=== PATIENT | female | born 1980 | race Caucasian/White ===

== ENCOUNTER 2017-01-07 14:41 | Inpatient (IN) | payer MEDICAID ==
[~2017-01-07] VITALS: Ht 177.8 cm; Wt 93.9 kg
[2017-01-07 18:25] LABS: BASOPHILS % (AUTO) 0.4 % (0.0-2.0); EOSINOPHILS % (AUTO) 2.1 % (1.0-6.0); HEMATOCRIT 41.3 % (36-46); HEMOGLOBIN 13.8 g/dL (12.0-16.0); LYMPHOCYTES # (AUTO) 3.3 K/uL (1.0-4.8); LYMPHOCYTES % (AUTO) 27.4 % (22.0-44.0); MEAN CORPUSCULAR HEMOGLOBIN 29.2 pg (26.0-34.0); MEAN CORPUSCULAR HGB CONC 33.4 G/dL (31.0-37.0); MEAN CORPUSCULAR VOLUME 87 fL (80-100); MONOCYTES # (AUTO) 0.8 K/uL (0.1-1.0); MONOCYTES % (AUTO) 6.6 % (2.0-9.0); NEUTROPHILS # (AUTO) 7.5 K/uL (1.8-7.7); NEUTROPHILS % (AUTO) 63.5 % (40.0-70.0); PLATELET COUNT (AUTO) 300 K/uL (150-450); RED BLOOD CELL COUNT(AUTO) 4.72 MIL/uL (4.00-5.20); RED CELL DISTRIBUTION WIDTH 13.2 % (11.5-14.5); WHITE BLOOD COUNT (AUTO) 11.9 K/uL (4.5-11.0)
[2017-01-07 18:38] LABS: ANION GAP 11 mmol/L (8-16); CALCIUM, TOTAL 9.1 mg/dL (8.8-10.5); CARBON DIOXIDE 28 mmol/L (22-29); CHLORIDE 100 mmol/L (98-107); GLOMERULAR FILTR. RATE CALC > 60 mL/min (>60); SODIUM SERUM 139 mmol/L (136-145); UREA NITROGEN, BLOOD 16 mg/dL (7-18)
[2017-01-07 18:44] LABS: ALANINE AMINOTRANSFERASE 24 U/L (12-78); ALBUMIN 3.8 g/dL (3.4-5.0); ASPARTATE AMINOTRANSFERASE 16 U/L (15-37); BILIRUBIN,TOTAL 0.4 mg/dL (0.1-1.0); TOTAL PROTEIN, SERUM 7.8 g/dL (6.4-8.2)
[2017-01-07] MEDS ORDERED: HALOPERIDOL 5 MG TABLET PO ONE (21:00)
[2017-01-07] MEDS ORDERED: LORazepam 2 MG TABLET PO ONE (21:00)
[2017-01-07] MEDS ORDERED: DiphenhydrAMINE HCL 25 MG CAPSULE PO ONE (21:00)
[2017-01-07] MEDS ORDERED: ZOLPIDEM TARTRATE 10 MG TABLET PO PRN (22:00)
[2017-01-07 22:04] VITALS: BP 122/66
[2017-01-07 23:51] VITALS: BP 117/69
[2017-01-08] MEDS ORDERED: INFLUENZA VIRUS VACCINE QVS 2016-17 (3YR+)/PF 60 MCG/0.5 ML SYRINGE IM ONE (00:30)
[2017-01-08 08:14] VITALS: BP 106/62
[2017-01-08] MEDS: NICOTINE 7 MG/24 HOUR PATCH TD SCH ×2 (08:34→09:00)
[2017-01-08] MEDS ORDERED: ACETAMINOPHEN 325 MG TABLET PO PRN (10:30)
[2017-01-08] MEDS ORDERED: IBUPROFEN 400 MG TABLET PO PRN (10:30)
[2017-01-08] MEDS: HALOPERIDOL 5 MG TABLET PO PRN (14:27)
[2017-01-08] MEDS: LORazepam 2 MG TABLET PO PRN (14:27)
[2017-01-08 16:05] VITALS: BP 112/72
[2017-01-09] MEDS: HALOPERIDOL 5 MG TABLET PO PRN (06:30)
[2017-01-09] MEDS: LORazepam 2 MG TABLET PO PRN (06:30)
[2017-01-09 08:52] LABS: HEMOGLOBIN A1C 5.8 % (4.5-6.2)
[2017-01-09 08:58] VITALS: BP 118/77
[2017-01-09] MEDS ORDERED: DiphenhydrAMINE HCL 50 MG/ML VIAL IM ONE (09:00)
[2017-01-09] MEDS ORDERED: LORazepam 2 MG/ML VIAL IM ONE (09:00)
[2017-01-09] MEDS ORDERED: HALOPERIDOL LACTATE 5 MG/ML VIAL IM ONE (09:00)
[2017-01-09] MEDS: CITALOPRAM HYDROBROMIDE 20 MG TABLET PO SCH (09:02)
[2017-01-09] MEDS: NICOTINE 7 MG/24 HOUR PATCH TD SCH (09:02)
[2017-01-09 09:35] LABS: CHOL/HDL RATIO 4.8 (3.9-5.7); THYROID STIMULATING HORMONE 2.22 uIU/mL (0.36-3.74)
[2017-01-10 05:08] VITALS: BP 106/64
[2017-01-10] MEDS: HALOPERIDOL 5 MG TABLET PO PRN ×3 (05:11→18:03)
[2017-01-10] MEDS: LORazepam 2 MG TABLET PO PRN ×3 (05:11→18:03)
[2017-01-10] MEDS: CITALOPRAM HYDROBROMIDE 20 MG TABLET PO SCH (09:33)
[2017-01-10] MEDS: NICOTINE 7 MG/24 HOUR PATCH TD SCH (09:33)
[2017-01-10 10:58] VITALS: BP 106/67
[2017-01-10 16:09] VITALS: BP 101/67
[2017-01-10] MEDS: SIMVASTATIN 5 MG TABLET PO SCH (20:38)
[2017-01-11 00:12] VITALS: BP 100/61
[2017-01-11 07:01] VITALS: BP 117/70
[2017-01-11 08:05] VITALS: BP 117/70
[2017-01-11] MEDS: NICOTINE 7 MG/24 HOUR PATCH TD SCH (08:42)
[2017-01-11] MEDS: CITALOPRAM HYDROBROMIDE 20 MG TABLET PO SCH (08:45)
[2017-01-11] MEDS: LORazepam 2 MG TABLET PO PRN ×2 (12:06→17:59)
[2017-01-11] MEDS: HALOPERIDOL 5 MG TABLET PO PRN ×2 (13:21→17:59)
[2017-01-11 16:15] VITALS: BP 108/72
[2017-01-11] MEDS: RisperiDONE 3 MG TABLET PO SCH (17:12)
[2017-01-11] MEDS: SIMVASTATIN 5 MG TABLET PO SCH (20:36)
[2017-01-12 00:37] VITALS: BP 110/76
[2017-01-12] MEDS: CITALOPRAM HYDROBROMIDE 20 MG TABLET PO SCH (08:19)
[2017-01-12] MEDS: LORazepam 2 MG TABLET PO PRN ×2 (08:20→16:00)
[2017-01-12] MEDS: RisperiDONE 3 MG TABLET PO SCH ×2 (08:20→16:02)
[2017-01-12 08:24] VITALS: BP 111/77
[2017-01-12] MEDS: HALOPERIDOL 5 MG TABLET PO PRN (08:45)
[2017-01-12] MEDS: NICOTINE 7 MG/24 HOUR PATCH TD SCH ×2 (09:00→12:50)
[2017-01-12 16:03] VITALS: BP 115/74
[2017-01-12] MEDS ORDERED: RISP3TAB44 PO (19:18)
[2017-01-12] MEDS ORDERED: CITA20TA17 PO (19:18)
[2017-01-12] MEDS ORDERED: SIMV5TAB2 PO (19:32)
== END 2017-01-12 21:09 | disposition home or self-care (01) | DRG 750 ==
LOC: EMS 14:42 → B2S 21:59
PROVIDERS: ADMIT Psychiatry & Neurology Psychiatry; ATTEND Psychiatry & Neurology Psychiatry
DX: F25.9 Schizoaffective disorder, unspecified (principal); Z59.0 Homelessness; F32.9 Major depressive disorder, single episode, unspecified; D72.829 Elevated white blood cell count, unspecified; F41.9 Anxiety disorder, unspecified; F17.210 Nicotine dependence, cigarettes, uncomplicated; Z91.018 Allergy to other foods; Z28.21 Immunization not carried out because of patient refusal
CPT/HCPCS: 83036; 84443; 87081; 99285; G0480; J1200; J1630; J2060

== ENCOUNTER 2017-01-20 19:50 | Inpatient (IN) | payer MEDICAID ==
[~2017-01-20] VITALS: Ht 160 cm; Wt 92.5 kg
[~2017-01-20 19:50] MED LIST: CITA20TA17 PO; RISP3TAB44 PO; SIMV5TAB2 PO
[2017-01-21 05:44] VITALS: BP 108/71
[2017-01-21] MEDS ORDERED: INFLUENZA VIRUS VACCINE QVS 2016-17 (3YR+)/PF 60 MCG/0.5 ML SYRINGE IM ONE (06:00)
[2017-01-21] MEDS ORDERED: RISPC25 IM (10:54)
[2017-01-21] MEDS ORDERED: DIVA500T35 PO (10:54)
[2017-01-21] MEDS ORDERED: VIST50 PO (10:54)
[2017-01-21] MEDS ORDERED: PRAZ1 PO (10:54)
[2017-01-21] MEDS: LORazepam 1 MG TABLET PO PRN (16:20)
[2017-01-21] MEDS: HALOPERIDOL 5 MG TABLET PO PRN (16:20)
[2017-01-21] MEDS ORDERED: DiphenhydrAMINE HCL 50 MG/ML VIAL ONE (16:35)
[2017-01-21] MEDS ORDERED: HALOPERIDOL LACTATE 5 MG/ML VIAL ONE (16:35)
[2017-01-21] MEDS ORDERED: LORazepam 2 MG/ML VIAL ONE (16:35)
[2017-01-21] MEDS ORDERED: LORazepam 2 MG/ML VIAL IM ONE (16:45)
[2017-01-21] MEDS ORDERED: HALOPERIDOL LACTATE 5 MG/ML VIAL IM ONE (16:45)
[2017-01-21] MEDS ORDERED: DiphenhydrAMINE HCL 50 MG/ML VIAL IM ONE (16:45)
[2017-01-21 17:30] VITALS: BP 136/80
[2017-01-21] MEDS: DIVALPROEX SODIUM 500 MG DR TABLET PO SCH (20:50)
[2017-01-21] MEDS: ZOLPIDEM TARTRATE 10 MG TABLET PO PRN (21:08)
[2017-01-22 07:03] VITALS: BP 132/78
[2017-01-22] MEDS: RisperiDONE 3 MG TABLET PO SCH ×2 (09:29→16:02)
[2017-01-22] MEDS: CITALOPRAM HYDROBROMIDE 20 MG TABLET PO SCH (09:29)
[2017-01-22] MEDS ORDERED: LORazepam 2 MG/ML VIAL ONE (11:22)
[2017-01-22] MEDS ORDERED: DiphenhydrAMINE HCL 50 MG/ML VIAL ONE (11:22)
[2017-01-22] MEDS ORDERED: HALOPERIDOL LACTATE 5 MG/ML VIAL ONE (11:23)
[2017-01-22] MEDS ORDERED: HALOPERIDOL LACTATE 5 MG/ML VIAL IM ONE (11:30)
[2017-01-22] MEDS ORDERED: LORazepam 2 MG/ML VIAL IM ONE (11:30)
[2017-01-22] MEDS ORDERED: DiphenhydrAMINE HCL 50 MG/ML VIAL IM ONE (11:30)
[2017-01-22] MEDS: HALOPERIDOL 5 MG TABLET PO PRN (16:02)
[2017-01-22] MEDS: LORazepam 1 MG TABLET PO PRN ×2 (16:02→20:33)
[2017-01-22] MEDS: DIVALPROEX SODIUM 500 MG DR TABLET PO SCH (20:33)
[2017-01-22] MEDS: ZOLPIDEM TARTRATE 10 MG TABLET PO PRN (21:08)
[2017-01-22] MEDS ORDERED: IBUPROFEN 400 MG TABLET PO PRN (23:30)
[2017-01-22] MEDS ORDERED: ACETAMINOPHEN 325 MG TABLET PO PRN (23:30)
[2017-01-23] MEDS: CITALOPRAM HYDROBROMIDE 20 MG TABLET PO SCH (08:52)
[2017-01-23] MEDS: RisperiDONE 3 MG TABLET PO SCH ×2 (08:52→16:50)
[2017-01-23] MEDS: LORazepam 1 MG TABLET PO PRN ×2 (12:34→21:18)
[2017-01-23] MEDS: HALOPERIDOL 5 MG TABLET PO PRN (12:34)
[2017-01-23] MEDS ORDERED: DiphenhydrAMINE HCL 50 MG/ML VIAL ONE (14:25)
[2017-01-23] MEDS ORDERED: DiphenhydrAMINE HCL 50 MG/ML VIAL IM ONE (14:30)
[2017-01-23] MEDS ORDERED: LORazepam 2 MG/ML VIAL IM ONE (14:30)
[2017-01-23] MEDS ORDERED: HALOPERIDOL LACTATE 5 MG/ML VIAL IM ONE (14:30)
[2017-01-23] MEDS: DIVALPROEX SODIUM 500 MG DR TABLET PO SCH (21:18)
[2017-01-23] MEDS: ZOLPIDEM TARTRATE 10 MG TABLET PO PRN (21:50)
[2017-01-24] MEDS: CITALOPRAM HYDROBROMIDE 20 MG TABLET PO SCH (08:11)
[2017-01-24] MEDS: RisperiDONE 3 MG TABLET PO SCH ×2 (08:11→16:07)
[2017-01-24] MEDS: LORazepam 1 MG TABLET PO PRN ×2 (12:51→17:02)
[2017-01-24] MEDS: HALOPERIDOL 5 MG TABLET PO PRN ×2 (12:51→17:02)
[2017-01-24] MEDS ORDERED: LORazepam 2 MG/ML VIAL ONE (14:28)
[2017-01-24] MEDS ORDERED: HALOPERIDOL LACTATE 5 MG/ML VIAL ONE (14:28)
[2017-01-24] MEDS ORDERED: DiphenhydrAMINE HCL 50 MG/ML VIAL ONE (14:29)
[2017-01-24] MEDS ORDERED: DiphenhydrAMINE HCL 50 MG/ML VIAL IM ONE (14:45)
[2017-01-24] MEDS ORDERED: HALOPERIDOL LACTATE 5 MG/ML VIAL IM ONE (14:45)
[2017-01-24] MEDS ORDERED: LORazepam 2 MG/ML VIAL IM ONE (14:45)
[2017-01-24 16:18] VITALS: BP 100/70
[2017-01-24] MEDS: DIVALPROEX SODIUM 500 MG DR TABLET PO SCH (20:26)
[2017-01-24] MEDS: ZOLPIDEM TARTRATE 10 MG TABLET PO PRN (20:26)
[2017-01-25 08:19] VITALS: BP 117/70
[2017-01-25] MEDS: CITALOPRAM HYDROBROMIDE 20 MG TABLET PO SCH (08:24)
[2017-01-25] MEDS: RisperiDONE 3 MG TABLET PO SCH ×2 (08:24→16:16)
[2017-01-25] MEDS: HALOPERIDOL 5 MG TABLET PO PRN ×2 (12:42→20:10)
[2017-01-25] MEDS: LORazepam 1 MG TABLET PO PRN ×2 (12:42→20:10)
[2017-01-25 17:57] VITALS: BP 125/74
[2017-01-25] MEDS: DIVALPROEX SODIUM 500 MG DR TABLET PO SCH (20:09)
[2017-01-25] MEDS: ZOLPIDEM TARTRATE 10 MG TABLET PO PRN (20:10)
[2017-01-26 06:44] VITALS: BP 124/71
[2017-01-26] MEDS: CITALOPRAM HYDROBROMIDE 20 MG TABLET PO SCH (08:08)
[2017-01-26] MEDS: RisperiDONE 3 MG TABLET PO SCH ×2 (08:08→16:47)
[2017-01-26] MEDS: LORazepam 1 MG TABLET PO PRN ×4 (08:39→21:50)
[2017-01-26] MEDS: HALOPERIDOL 5 MG TABLET PO PRN ×2 (13:44→17:48)
[2017-01-26 16:08] VITALS: BP 128/81
[2017-01-26] MEDS: DIVALPROEX SODIUM 500 MG DR TABLET PO SCH (20:23)
[2017-01-26] MEDS: ZOLPIDEM TARTRATE 10 MG TABLET PO PRN (21:04)
[2017-01-27 06:29] VITALS: BP 122/70
[2017-01-27] MEDS: RisperiDONE 3 MG TABLET PO SCH ×2 (08:20→16:27)
[2017-01-27] MEDS: CITALOPRAM HYDROBROMIDE 20 MG TABLET PO SCH (08:20)
[2017-01-27] MEDS: LORazepam 1 MG TABLET PO PRN (08:23)
[2017-01-27] MEDS: HALOPERIDOL 5 MG TABLET PO PRN (13:57)
[2017-01-27] MEDS: DIVALPROEX SODIUM 500 MG DR TABLET PO SCH (20:38)
[2017-01-28] MEDS: CITALOPRAM HYDROBROMIDE 20 MG TABLET PO SCH (08:03)
[2017-01-28] MEDS: RisperiDONE 3 MG TABLET PO SCH (08:03)
[2017-01-28 08:41] VITALS: BP 121/78
[2017-01-28] MEDS: HALOPERIDOL 5 MG TABLET PO PRN (09:06)
[2017-02-03] MEDS ORDERED: RisperiDONE MICROSPHERES 50 MG/2 ML SYRINGE IM SCH (09:00)
== END 2017-01-28 13:44 | disposition home or self-care (01) | DRG 750 ==
LOC: B3A 01-21 03:30
PROVIDERS: ADMIT Psychiatry & Neurology Psychiatry; ATTEND Psychiatry & Neurology Psychiatry
DX: F25.9 Schizoaffective disorder, unspecified (principal); R45.851 Suicidal ideations; F20.0 Paranoid schizophrenia; F32.9 Major depressive disorder, single episode, unspecified; F41.9 Anxiety disorder, unspecified; E78.5 Hyperlipidemia, unspecified; F17.200 Nicotine dependence, unspecified, uncomplicated; Z71.6 Tobacco abuse counseling; Z91.018 Allergy to other foods; Z28.21 Immunization not carried out because of patient refusal
CPT/HCPCS: J1200; J1630; J2060

== ENCOUNTER 2017-07-30 00:02 | Inpatient (IN) | payer MEDICAID ==
[~2017-07-30] VITALS: Ht 165.1 cm; Wt 94.5 kg
[~2017-07-30 00:02] MED LIST changes: +DIVA500T35 PO; -SIMV5TAB2 PO
[2017-07-30] MEDS ORDERED: ZOLPIDEM TARTRATE 10 MG TABLET PO PRN (01:45)
[2017-07-30 04:10] VITALS: BP 123/76
[2017-07-30 08:25] VITALS: BP 126/80
[2017-07-30 18:16] VITALS: BP 128/78
[2017-07-30] MEDS: DiphenhydrAMINE HCL 25 MG CAPSULE PO SCH (20:10)
[2017-07-31 06:56] VITALS: BP 122/79
[2017-07-31] MEDS: PALIPERIDONE 6 MG ER TABLET PO SCH ×2 (08:30→17:15)
[2017-07-31] MEDS ORDERED: PALIPERIDONE PALMITATE 234 MG/1.5 ML SYRINGE IM ONE (09:00)
[2017-07-31] MEDS: LORazepam 1 MG TABLET PO PRN ×2 (11:51→17:16)
[2017-07-31] MEDS: QUEtiapine FUMARATE 100 MG TABLET PO PRN ×2 (11:51→17:16)
[2017-07-31] MEDS: DiphenhydrAMINE HCL 25 MG CAPSULE PO SCH (20:27)
[2017-08-01 07:17] VITALS: BP 126/83
[2017-08-01 08:12] VITALS: BP 122/71
[2017-08-01] MEDS: PALIPERIDONE 6 MG ER TABLET PO SCH ×2 (08:35→16:49)
[2017-08-01] MEDS: LORazepam 1 MG TABLET PO PRN (08:35)
[2017-08-01] MEDS: QUEtiapine FUMARATE 100 MG TABLET PO PRN (08:35)
[2017-08-01 16:18] VITALS: BP 126/79
[2017-08-01] MEDS: DiphenhydrAMINE HCL 25 MG CAPSULE PO SCH (20:27)
[2017-08-02 06:46] VITALS: BP 118/75
[2017-08-02] MEDS: NICOTINE 7 MG/24 HOUR PATCH TD SCH (08:51)
[2017-08-02] MEDS: PALIPERIDONE 6 MG ER TABLET PO SCH ×2 (08:51→16:38)
[2017-08-02 16:32] VITALS: BP 125/78
[2017-08-02] MEDS: BACITRACIN 28.4 GM OINTMENT TP SCH (16:38)
[2017-08-02] MEDS: LORazepam 1 MG TABLET PO PRN (16:38)
[2017-08-02] MEDS: DiphenhydrAMINE HCL 25 MG CAPSULE PO SCH (20:49)
[2017-08-03] MEDS: NICOTINE 7 MG/24 HOUR PATCH TD SCH (08:33)
[2017-08-03] MEDS: PALIPERIDONE 6 MG ER TABLET PO SCH ×2 (08:33→16:17)
[2017-08-03] MEDS: BACITRACIN 28.4 GM OINTMENT TP SCH ×2 (08:36→16:17)
[2017-08-03 09:01] LABS: BASOPHILS # (AUTO) 0.03 K/uL (0.00-0.20); BASOPHILS % (AUTO) 0.4 % (0.0-2.0); EOSINOPHILS # (AUTO) 0.38 K/uL (0.00-0.70); EOSINOPHILS % (AUTO) 5.94 % (1.0-6.0); HEMATOCRIT 40.9 % (36-46); HEMOGLOBIN 13.9 g/dL (12.0-16.0); LYMPHOCYTES % (AUTO) 30.7 % (22.0-44.0); MEAN CORPUSCULAR HEMOGLOBIN 29.8 pg (26.0-34.0); MEAN CORPUSCULAR HGB CONC 34.1 G/dL (31.0-37.0); MEAN CORPUSCULAR VOLUME 87 fL (80-100); MONOCYTES # (AUTO) 0.4 K/uL (0.1-1.0); MONOCYTES % (AUTO) 5.6 % (2.0-9.0); NEUTROPHILS # (AUTO) 3.7 K/uL (1.8-7.7); NEUTROPHILS % (AUTO) 57.4 % (40.0-70.0); PLATELET COUNT (AUTO) 277 K/uL (150-450); RED BLOOD CELL COUNT(AUTO) 4.68 MIL/uL (4.00-5.20); RED CELL DISTRIBUTION WIDTH 12.5 % (11.5-14.5); WHITE BLOOD COUNT (AUTO) 6.4 K/uL (4.5-11.0)
[2017-08-03 09:43] LABS: ALANINE AMINOTRANSFERASE 30 U/L (12-78); ALBUMIN 3.5 g/dL (3.4-5.0); ANION GAP 12 mmol/L (8-16); ASPARTATE AMINOTRANSFERASE 17 U/L (15-37); BILIRUBIN,TOTAL 0.3 mg/dL (0.1-1.0); CALCIUM, TOTAL 8.8 mg/dL (8.8-10.5); CARBON DIOXIDE 25 mmol/L (22-29); CHLORIDE 103 mmol/L (98-107); CREATININE 0.91 mg/dL (0.60-1.30); GLOMERULAR FILTR. RATE CALC > 60 mL/min (>60); POTASSIUM 4.4 mmol/L (3.5-5.1); SODIUM SERUM 140 mmol/L (136-145); TOTAL PROTEIN, SERUM 6.6 g/dL (6.4-8.2); UREA NITROGEN, BLOOD 14 mg/dL (7-18)
[2017-08-03] MEDS ORDERED: IBUPROFEN 400 MG TABLET PO PRN (11:15)
[2017-08-03] MEDS ORDERED: BENZOCAINE 10% 7 GM GEL TP PRN (11:15)
[2017-08-03 12:11] VITALS: BP 126/74
[2017-08-03 13:27] VITALS: BP 126/81
[2017-08-03] MEDS: DiphenhydrAMINE HCL 25 MG CAPSULE PO SCH (20:10)
[2017-08-04] MEDS: PALIPERIDONE 6 MG ER TABLET PO SCH (08:10)
[2017-08-04] MEDS: NICOTINE 7 MG/24 HOUR PATCH TD SCH (08:11)
[2017-08-04 08:16] VITALS: BP 140/77
[2017-08-04] MEDS ORDERED: PALI6 PO (08:35)
[2017-08-04] MEDS ORDERED: DIPH50 PO (08:35)
[2017-08-04] MEDS ORDERED: TERBINAFINE HCL 1% 30 GM CREAM TP SCH (09:00)
[2017-08-04] MEDS: BACITRACIN 28.4 GM OINTMENT TP SCH (09:03)
== END 2017-08-04 12:05 | disposition home or self-care (01) | DRG 750 ==
LOC: EDSTATUS 00:58 → B3A 01:47
PROVIDERS: ADMIT Psychiatry & Neurology Psychiatry; ATTEND Psychiatry & Neurology Psychiatry
DX: F25.0 Schizoaffective disorder, bipolar type (principal); E78.5 Hyperlipidemia, unspecified; F17.200 Nicotine dependence, unspecified, uncomplicated; F41.9 Anxiety disorder, unspecified; Z91.5 Personal history of self-harm; Z91.19 Patient's noncompliance with other medical treatment and regimen; Z88.8 Allergy status to other drugs, medicaments and biological substances
CPT/HCPCS: 99285